=== PATIENT | male | born 1975 ===

== ENCOUNTER 2020-07-03 01:38 | Emergency (ER) | payer SELFPAY ==
[~2020-07-03] VITALS: Ht 180.3 cm; Wt 74.0 kg
[2020-07-03 01:39] VITALS: BP 138/79
--- NOTE | 2020-07-03 02:00 | NUR ---
XRAY AT BEDSIDE
--- NOTE | 2020-07-03 02:25 | NUR ---
PT HOPPING ON ONE FOOT OUT OF ROOM, ELOPING FROM DEPARTMENT. "I AM LEAVING THIS FUCKING PLACE, Y'ALL DON'T LISTEN. I HAVE PAIN YOU FUCKERS. I NEED TO GET AWAY FROM HERE". ATTEMPT TO HAVE PT STAY IN ROOM AND ED FOR COMPLETION OF VISIT. PT UNWILLING TO STAY AND CONTINUES TO YELL AT THIS RN AND OTHER STAFF WHILE EXITING THE DEPARTMENT. ERP NOTIFIED
== END 2020-07-03 02:29 | disposition left against medical advice (07) ==
LOC: ED 02:08
DX: G89.11 Acute pain due to trauma (principal); M25.571 Pain in right ankle and joints of right foot; E87.1 Hypo-osmolality and hyponatremia
CPT/HCPCS: 99283